=== PATIENT | female | born 1995 | race African-American/Black ===

== ENCOUNTER 2018-12-18 23:41 | Emergency (ER) | payer BC, OTHER ==
[~2018-12-18] VITALS: Ht 162.6 cm; Wt 54.9 kg
[2018-12-19 00:02] LABS: URINE BILIRUBIN NEGATIVE (Negative); URINE BLOOD NEGATIVE (Negative); URINE CLARITY CLEAR; URINE COLOR YELLOW; URINE GLUCOSE-RANDOM* NEGATIVE (Negative); URINE KETONES NEGATIVE (Negative); URINE LEUKOCYTES-REFLEX NEGATIVE (Negative); URINE NITRITE-REFLEX NEGATIVE (Negative); URINE PROTEIN (DIPSTICK) NEGATIVE (Negative)
[2018-12-19 00:28] LABS: ABSOLUTE NEUTROPHILS 11.3 thou/uL (1.4-8.2); BASOPHILS 0.3 % (0.0-2.0); EOSINOPHILS 2.2 % (0.0-3.0); HEMATOCRIT 36.4 % (37.0-47.0); HEMOGLOBIN 12.8 gm/dL (12.0-15.0); MCH 30.1 pg (26.0-34.0); MCHC 35.2 g/dL (28.0-37.0); MCV 85.6 fL (80.0-100.0); MONOCYTES 9.7 % (1.0-8.0); PLATELET COUNT 237 thou/uL (150-400); POLYS 74.8 % (36.0-66.0); RBC 4.25 mil/uL (4.20-5.00); RDW 12.8 % (10.5-14.5); WBC 15.1 thou/uL (4.0-11.0)
[2018-12-19 00:38] LABS: CALCIUM 8.4 mg/dL (8.5-10.1); CREATININE 0.7 mg/dL (0.6-1.0); POTASSIUM 3.4 mmol/L (3.5-5.1)
[2018-12-19 00:44] LABS: ALBUMIN 3.3 g/dL (3.4-5.0); DIRECT BILIRUBIN 0.2 mg/dL (<0.1-0.3); TOTAL BILIRUBIN 0.9 mg/dL (<0.1-1.0); TOTAL PROTEIN 6.8 g/dL (6.4-8.2)
[2018-12-19] MEDS ORDERED: MIRALAX17 GM PO (01:49)
[2018-12-19 02:29] VITALS: BP 120/66
== END 2018-12-19 02:30 | disposition home or self-care (01) ==
LOC: ER 23:41
PROVIDERS: Student in an Organized Health Care Education/Training Program
DX: K59.00 Constipation, unspecified (principal)

== ENCOUNTER 2018-12-20 16:24 | Emergency (ER) | payer BC, OTHER ==
[~2018-12-20] VITALS: Ht 162.6 cm; Wt 54.9 kg
[~2018-12-20 16:24] MED LIST: MIRALAX17 GM PO
[2018-12-20 17:40] VITALS: BP 116/70
== END 2018-12-20 17:43 | disposition home or self-care (01) ==
LOC: ER 16:24
DX: K64.5 Perianal venous thrombosis (principal)